=== PATIENT | male | born 1960 | race American Indian/Alaskan Native ===

== ENCOUNTER 2019-05-22 09:32 | Inpatient (IN) | payer MEDICARE, OTHER ==
[2019-05-22] MEDS ORDERED: IBUPROFEN PO ONE (10:08)
--- NOTE | 2019-05-22 10:12 | Emergency Department Report ---
ED Chest Pain HPI - General Chief Complaint: Chest Pain Stated Complaint: CHEST PAIN Time Seen by Provider: 05/22/19 10:07 Source: patient Mode of arrival: Ambulatory Limitations: No Limitations - History of Present Illness Initial Comments: Mr. Shields is a 58 yo male with hx of HTN, tobacco abuse who presents with right sided chest pain after eating spaghetti last night. [place] like gas. However, the pain has persisted. Worse with inspiration. Dull "very light " pain. No hx of heart disease. PCP Dr. Zarate. No relief with Gas-X Complaint: chest pain -: Gradual, Last night Onset: during rest Pain Location: right chest Pain Radiation: none Severity: mild Severity scale (0 -10): 4 Quality: aching Consistency: constant Improves With: nothing Worsens With: inspiration Other Symptoms: denies: cough Treatments Prior to Arrival: other (Gas X) - Related Data Allergies Allergy/AdvReac Type Severity Reaction Status Date / Time No Known Allergies Allergy Verified 05/22/19 09:45 Heart Score - HEART Score History: Slightly suspicious EKG: Normal Age: 45-65 Risk factors: 1-2 risk factors Troponin: < normal limit HEART Score: 2 ED Review of Systems ROS: Stated complaint: CHEST PAIN Other details as noted in HPI Comment: All other systems reviewed and negative Constitutional: denies: fever, malaise Respiratory: denies: cough, shortness of breath Cardiovascular: chest pain Gastrointestinal: denies: abdominal pain ED Past Medical Hx - Past Medical History Previous Medical History?: Yes Hx Hypertension: Yes - Surgical History Past Surgical History?: Yes Additional Surgical History: right shoulder/arm - Family History Family history: hypertension - Social History Smoking Status: Current Every Day Smoker Substance Use Type: Alcohol ED Physical Exam - General Limitations: No Limitations General appearance: alert, in no apparent distress - Head Head exam: Present: atraumatic, normocephalic - Eye Eye exam: Present: normal appearance - ENT ENT exam: Present: mucous membranes moist - Neck Neck exam: Present: normal inspection, full ROM - Respiratory Respiratory exam: Present: normal lung sounds bilaterally. Absent: respiratory distress, wheezes, rales, rhonchi - Cardiovascular Cardiovascular Exam: Present: regular rate, normal rhythm, normal heart sounds. Absent: systolic murmur, diastolic murmur, rubs, gallop - GI/Abdominal GI/Abdominal exam: Present: soft, normal bowel sounds. Absent: distended, tenderness, guarding, rebound - Rectal Rectal exam: Present: deferred - Extremities Exam Extremities exam: Present: normal inspection - Back Exam Back exam: Present: normal inspection - Neurological Exam Neurological exam: Present: alert, oriented X3 - Psychiatric Psychiatric exam: Present: normal affect, normal mood - Skin Skin exam: Present: warm, dry, intact, normal color. Absent: rash ED Course Vital Signs 05/22/19 05/22/19 09:46 13:01 Temperature 97.6 F 97.8 F Pulse Rate 114 H 81 Respiratory 18 18 Rate Blood Pressure 158/90 Blood Pressure 131/81 [Left] O2 Sat by Pulse 95 95 Oximetry ED Medical Decision Making - Lab Data Result diagrams: 05/22/19 10:12 05/22/19 10:12 Lab Results 05/22/19 05/22/19 05/22/19 Range/Units 10:12 10:12 10:12 WBC 6.6 (4.5-11.0) K/mm3 RBC 4.44 (3.65-5.03) M/mm3 Hgb 14.6 (11.8-15.2) gm/dl Hct 43.1 (35.5-45.6) % MCV 97 H (84-94) fl MCH 33 H (28-32) pg MCHC 34 (32-34) % RDW 14.9 (13.2-15.2) % Plt Count 127 L (140-440) K/mm3 [place] % (Auto) Third Shift Lieutenant D-Dimer 1757.46 H (0-234) ng/mlDDU Sodium 137 (137-145) mmol/L Potassium 4.0 (3.6-5.0) mmol/L Chloride 94.9 L (98-107) mmol/L Carbon Dioxide 30 (22-30) mmol/L Anion Gap 16 mmol/L BUN 8 L (9-20) mg/dL Creatinine 0.9 (0.8-1.5) mg/dL Estimated GFR > 60 ml/min BUN/Creatinine Ratio 9 % Glucose 130 H (75-100) mg/dL Calcium 9.6 (8.4-10.2) mg/dL Total Bilirubin 1.20 (0.1-1.2) mg/dL AST 43 H (5-40) units/L ALT 36 (7-56) units/L Alkaline Phosphatase 65 (35-129) units/L Troponin T < 0.010 (0.00-0.029) ng/mL Total Protein 7.6 (6.3-8.2) g/dL Albumin 3.9 (3.9-5) g/dL Albumin/Globulin Ratio 1.1 % - EKG Data 05/22/19 10:11 EKG obtained 0943 Sinus tachycardia rate 110 bpm normal axis normal intervals no ST-T signs no indication of infarct - Radiology Data Radiology results: report reviewed Chest x-ray 2 views according to radiology report streaky bibasilar atelectasis with otherwise clear lungs, heart within normal limits - Medical Decision Making Mr. Shields is a pleasant 58-year-old gentleman with history of hypertension and tobacco abuse who presents with a chest pain Diagnosis pulmonary emboli segmental subsegmental CT scan revealed parenchymal c hanges possible infarction. Normal troponin. Admitted telemetry in stable condition. Repeat heart rate 72 beats per minute. Repeat blood pressure 121/72. Given Lovenox and medication for pain control. Mr. Shields has been stable and nontoxic appearing throughout ED course. Critical care attestation.: If time is entered above; I have spent that time in minutes in the direct care of this critically ill patient, excluding procedure time. ED Disposition Clinical Impression: Pulmonary embolism and infarction Disposition: OP ADMIT IP TO THIS HOSP Is pt being admited?: Yes Does the pt Need Aspirin: No Condition: Stable
--- NOTE | 2019-05-22 10:44 | XRay Report ---
CHEST 2 VIEWS INDICATION: Chest Pain. Generalized chest pain for the past 3 days COMPARISON: None FINDINGS: Support devices: None. Heart: Within normal limits. Lungs/pleura: There is streaky bibasilar airspace disease with otherwise clear lungs. No pneumothora x. Additional findings: None. IMPRESSION: 1. Streaky bibasilar atelectasis with otherwise clear lungs. Signer Name: Apollo Kamara MD Signed: 05/22/2019 10:39 AM Workstation Name: [id number]
[2019-05-22 10:51] LABS: Hematocrit 43.1 % (35.5-45.6); Hemoglobin 14.6 gm/dl (11.8-15.2); Mean Corpuscular HGB Conc 34 % (32-34); Mean Corpuscular Volume 97 fl (84-94); Platelet Count 127 K/mm3 (140-440); Red Blood Count 4.44 M/mm3 (3.65-5.03); Red Cell Distribution Width 14.9 % (13.2-15.2)
[2019-05-22 11:12] LABS: Alanine Aminotransferase 36 units/L (7-56); Albumin 3.9 g/dL (3.9-5); BUN/Creatinine Ratio 9; Blood Urea Nitrogen 8 mg/dL (9-20); Calcium 9.6 mg/dL (8.4-10.2); Hemolysis Index 29
--- NOTE | 2019-05-22 12:51 | Cat Scan Report ---
CTA chest with contrast INDICATION : pleuritic chest pain elevated d-dimer. Generalized right-sided chest pain for the past 3 days TECHNIQUE: Axial imaging performed through the chest, with contrast bolus timing set to maximize opa cification of the pulmonary arteries. 3-plane MIP reformatted images were obtained. All CT scans at this location are performed using CT dose reduction for ALARA by means of automated exposure control. 100 mL of intravenous contrast administered. COMPARISON: None FINDINGS: Bolus: Contrast bolus timing is adequate. PTE: There are segmental/subsegmental thrombi in the right lower and middle lobes, with peripheral p arenchymal changes in the lungs especially in the right middle lobe which is pleural-based and wedge- shaped. Mediastinum: Heart and great vessels appear normal. No pathologic mediastinal adenopathy. Lungs: Aside from the above-mentioned parenchymal change, there is a small right-sided effusion and right basilar consolidation. Left lung is clear. Upper abdomen: Limited imaging of the upper abdomen shows nothing acute. Bones: Degenerative changes in the spine with nothing acute. IMPRESSION: Positive for PTE as outlined above. Findings in the lungs can be seen with evolving paren chymal infarction. CRITICAL RESULT: Time of Discovery (NUTRITION TECHNICIAN/CDT): 11:43 am Time of Communication (NUTRITION TECHNICIAN/CDT): 11:45 am Licensed Practitioner Receiving Report: Dr. Osullivan Read Back Performed: Not applicable. Signer Name: Apollo Kamara MD Signed: 05/22/2019 12:47 PM Workstation Name: [id number]
[2019-05-22] MEDS ORDERED: LOVENOX SUB-Q ONE (13:25)
[2019-05-22] MEDS ORDERED: PERCOCET 5/325 PO ONE (13:27)
[2019-05-22 13:30] LABS: Basophils % (Manual) 0 % (0.0-1.8); Platelet Estimate Consistent w Auto; RBC Morphology Normal; Total Cells Counted 100
--- NOTE | 2019-05-22 21:23 | History and Physical Report ---
History of Present Illness Date of examination: 05/22/19 Date of admission: 05/22/19 13:29 Chief complaint: CHest pain and SOB for one day History of present illness: Mr. Shields is a 58 yo male with hx of HTN, tobacco abuse presents with right sided chest pain after eating spaghetti last night. However, the pain has persisted. Worse with inspiration. Also SOB on minimal exertion.No prior history of PE. No recent travel. Past Medical History Previous Medical History?: Yes Hx Hypertension: Yes Surgical History Past Surgical History?: Yes Additional Surgical History: right shoulder/arm Family History Family history: hypertension Social History Smoking Status: Current Every Day Smoker Substance Use Type: Alcohol Review of Systems ROS: Stated complaint: CHEST PAIN Other details as noted in HPI Comment: All other systems reviewed and negative Constitutional: denies: fever, malaise Respiratory: denies: cough, shortness of breath Cardiovascular: chest pain Gastrointestinal: denies: abdominal pain Medications and Allergies Allergies Allergy/AdvReac Type Severity Reaction Status Date / Time No Known Allergies Allergy Verified 05/22/19 09:45 Home Medications Medication Instructions Recorded Confirmed Last Taken Type Losartan Potassium 50 mg PO QDAY 05/22/19 05/22/19 05/21/19 History hydroCHLOROthiazide [Hctz] 12.5 mg PO QDAY 05/22/19 05/22/19 05/21/19 10:00 History Exam - Constitutional Vitals: Temp Pulse Resp BP Pulse Ox 98.2 F 70 18 124/84 93 05/22/19 20:16 05/22/19 20:16 05/22/19 20:16 05/22/19 20:16 05/22/19 20:16 General appearance: Present: no acute distress, well-nourished - EENT Eyes: Present: PERRL ENT: hearing intact, clear oral mucosa - Neck Neck: Present: supple, normal ROM - Respiratory Respiratory effort: normal Respiratory: bilateral: CTA - Cardiovascular Heart rate: 98 Rhythm: regular Heart Sounds: Present: S1 & S2. Absent: rub, click - Extremities Extremities: no ischemia, pulses intact, pulses symmetrical, No edema Peripheral Pulses: within normal limits - Abdominal General gastrointestinal: Present: soft, non-tender, non-distended, normal bowel sounds Male genitourinary: Present: normal - Rectal Rectal Exam: deferred - Integumentary Integumentary: Present: clear, warm, dry - Musculoskeletal Musculoskeletal: gait normal, strength equal bilaterally - Psychiatric Psychiatric: appropriate mood/affect, intact judgment & insight - Neurologic Neurologic: CNII-XII intact, moves all extremities - Allied Health Allied health notes reviewed: nursing, case management Results - Labs CBC & Chem 7: 05/22/19 10:12 05/23/19 03:44 Labs: Laboratory Last Values WBC 6.6 K/mm3 (4.5-11.0) 05/22/19 10:12 RBC 4.44 M/mm3 (3.65-5.03) 05/22/19 10:12 Hgb 14.6 gm/dl (11.8-15.2) 05/22/19 10:12 Hct 43.1 % (35.5-45.6) 05/22/19 10:12 MCV 97 fl (84-94) H 05/22/19 10:12 MCH 33 pg (28-32) H 05/22/19 10:12 MCHC 34 % (32-34) 05/22/19 10:12 RDW 14.9 % (13.2-15.2) 05/22/19 10:12 Plt Count 127 K/mm3 (140-440) L 05/22/19 10:12 [place] % (Auto) Bicycle Repair Technician 05/22/19 10:12 Add Manual Diff Complete 05/22/19 10:12 Total Counted 100 05/22/19 10:12 Seg Neuts % (Manual) 71.0 % (40.0-70.0) H 05/22/19 10:12 0 % 05/22/19 10:12 14.0 % (13.4-35.0) 05/22/19 10:12 Reactive Lymphs % (Man) 0 % 05/22/19 10:12 12.0 % (0.0-7.3) H 05/22/19 10:12 3.0 % (0.0-4.3) 05/22/19 10:12 0 % (0.0-1.8) 05/22/19 10:12 0 % 05/22/19 10:12 0 % 05/22/19 10:12 0 % 05/22/19 10:12 0 % 05/22/19 10:12 Nucleated RBC % Not Reportable 05/22/19 10:12 Seg Neutrophils # Man 4.7 K/mm3 (1.8-7.7) 05/22/19 10:12 Band Neutrophils # 0.0 K/mm3 05/22/19 10:12 0.9 K/mm3 (1.2-5.4) L 05/22/19 10:12 Abs React Lymphs (Man) 0.0 K/mm3 05/22/19 10:12 0.8 K/mm3 (0.0-0.8) 05/22/19 10:12 0.2 K/mm3 (0.0-0.4) 05/22/19 10:12 0.0 K/mm3 (0.0-0.1) 05/22/19 10:12 0.0 K/mm3 05/22/19 10:12 0.0 K/mm3 05/22/19 10:12 0.0 K/mm3 05/22/19 10:12 Blast Cells # 0.0 K/mm3 05/22/19 10:12 WBC Morphology Not Reportable 05/22/19 10:12 Hypersegmented Neuts Not Reportable 05/22/19 10:12 Hyposegmented Neuts Not Reportable 05/22/19 10:12 Hypogranular Neuts Not Reportable 05/22/19 10:12 Not Reportable 05/22/19 10:12 Not Reportable 05/22/19 10:12 Not Reportable 05/22/19 10:12 Not Reportable 05/22/19 10:12 Not Reportable 05/22/19 10:12 Not Reportable 05/22/19 10:12 Consistent w auto 05/22/19 10:12 Not Reportable 05/22/19 10:12 Plt Clumps, EDTA Not Reportable 05/22/19 10:12 Not Reportable 05/22/19 10:12 Not Reportable 05/22/19 10:12 Not Reportable 05/22/19 10:12 Plt Morphology Comment Not Reportable 05/22/19 10:12 RBC Morphology Normal 05/22/19 10:12 Dimorphic RBCs Not Reportable 05/22/19 10:12 Not Reportable 05/22/19 10:12 Not Reportable 05/22/19 10:12 Not Reportable 05/22/19 10:12 Not Reportable 05/22/19 10:12 Not Reportable 05/22/19 10:12 Not Reportable 05/22/19 10:12 Not Reportable 05/22/19 10:12 Not Reportable 05/22/19 10:12 Not Reportable 05/22/19 10:12 Not Reportable 05/22/19 10:12 Not Reportable 05/22/19 10:12 Not Reportable 05/22/19 10:12 Not Reportable 05/22/19 10:12 Not Reportable 05/22/19 10:12 Not Reportable 05/22/19 10:12 Not Reportable 05/22/19 10:12 Not Reportable 05/22/19 10:12 Not Reportable 05/22/19 10:12 Not Reportable 05/22/19 10:12 Acanthocytes (Spur) Not Reportable 05/22/19 10:12 Rouleaux Not Reportable 05/22/19 10:12 Not Reportable 05/22/19 10:12 Not Reportable 05/22/19 10:12 Not Reportable 05/22/19 10:12 Not Reportable 05/22/19 10:12 Hem Pathologist Commnt No 05/22/19 10:12 1757.46 ng/mlDDU (0-234) H 05/22/19 10:12 Sodium 137 mmol/L (137-145) 05/22/19 10:12 Potassium 4.0 mmol/L (3.6-5.0) 05/22/19 10:12 Chloride 94.9 mmol/L (98-107) L 05/22/19 10:12 Carbon Dioxide 30 mmol/L (22-30) 05/22/19 10:12 16 mmol/L 05/22/19 10:12 BUN 8 mg/dL (9-20) L 05/22/19 10:12 0.9 mg/dL (0.8-1.5) 05/22/19 10:12 Estimated GFR > 60 ml/min 05/22/19 10:12 9 % 05/22/19 10:12 Glucose 130 mg/dL (75-100) H 05/22/19 10:12 Calcium 9.6 mg/dL (8.4-10.2) 05/22/19 10:12 1.20 mg/dL (0.1-1.2) 05/22/19 10:12 AST 43 units/L (5-40) H 05/22/19 10:12 ALT 36 units/L (7-56) 05/22/19 10:12 65 units/L (35-129) 05/22/19 10:12 < 0.010 ng/mL (0.00-0.029) 05/22/19 10:12 7.6 g/dL (6.3-8.2) 05/22/19 10:12 3.9 g/dL (3.9-5) 05/22/19 10:12 1.1 % 05/22/19 10:12 - Imaging and Cardiology EKG: report reviewed Imaging and Cardiology: CT Chest Segmental subsegmental thrombi in the right lower and middle lobes with parenchymal changes in the lungs possible evolving infarction., There is a small right-sided effusion Assessment and Plan Advance Directives: Yes (Full code) VTE prophylaxis?: Chemical Plan of care discussed with patient/family: Yes - Patient Problems (1) Acute pulmonary embolism Current Visit: Yes Status: Acute Qualifiers: Acute cor pulmonale presence: without acute cor pulmonale Plan to address problem: Lovenox 110 mcg sq q12h initiated Transition to Eliquis tomorrow. (2) HTN (hypertension) Current Visit: Yes Status: Chronic Qualifiers: Hypertension type: essential hypertension Qualified Code(s): I10 - Essential (primary) hypertension Plan to address problem: Cont antihypertensives (3) Chest pain Current Visit: Yes Status: Acute Qualifiers: Chest pain type: chest pain on breathing Qualified Code(s): R07.1 - Chest pain on breathing; R07.81 - Pleurodynia Plan to address problem: Sec to pumlmonary infarct Trend troponins No stress test (4) DVT prophylaxis Current Visit: Yes Status: Acute Plan to address problem: On Lovenox and GI prophylaxis
[2019-05-22] MEDS ORDERED: PERCOCET 5/325 PO PRN (21:24)
[2019-05-22] MEDS ORDERED: ZOFRAN IV PRN (21:24)
[2019-05-22] MEDS ORDERED: SODIUM CHLORIDE FLUSH SYRINGE 10 ML IV PRN (21:24)
[2019-05-22] MEDS ORDERED: TYLENOL PO PRN (21:24)
[2019-05-22] MEDS ORDERED: DILAUDID IV PRN (21:24)
[2019-05-22] MEDS ORDERED: LOSARTAN POTASSIUM 50 MG PO SCH (21:30)
[2019-05-22] MEDS: SODIUM CHLORIDE FLUSH SYRINGE 10 ML IV SCH (22:08)
[2019-05-22] MEDS: COZAAR PO SCH (22:09)
[2019-05-22] MEDS: PEPCID PO SCH (22:13)
[2019-05-23] MEDS: LOVENOX SUB-Q SCH ×2 (01:00→14:52)
[2019-05-23 05:22] LABS: Alanine Aminotransferase 30 units/L (7-56); Albumin 3.5 g/dL (3.9-5); BUN/Creatinine Ratio 11; Blood Urea Nitrogen 9 mg/dL (9-20); Calcium 9.2 mg/dL (8.4-10.2); Hemolysis Index 22
[2019-05-23] MEDS: PEPCID PO SCH ×2 (09:52→21:54)
[2019-05-23] MEDS: COZAAR PO SCH (09:52)
[2019-05-23] MEDS: SODIUM CHLORIDE FLUSH SYRINGE 10 ML IV SCH ×2 (09:53→21:54)
--- NOTE | 2019-05-23 10:53 | Progress Note ---
Assessment and Plan Assessment and plan: CT Chest:Segmental subsegmental thrombi in the right lower and middle lobes with parenchymal changes in the lungs possible evolving infarction., There is a small right-sided effusion --Acute RTpulmonary embolism Current Visit: Yes Status: Acute Lovenox 110 mcg sq q12h initiated Check lower extremity venous Doppler to rule out DVT Transition to Eliquis tomorrow. Hematology consult Case management to assist with Eliquis -- HTN (hypertension) Current Visit: Yes Status: Chronic Cont antihypertensives well Controlled --Chest pain Current Visit: Yes Status: Acute Sec to PE and pumlmonary infarct Patient denies chest pain today pulmonary evaluation inpatient versus outpatient -- DVT prophylaxis Current Visit: Yes Status: Acute Plan to address problem: On Lovenox and GI prophylaxis. --Obesity; BMI 33.9 Current Visit: Yes Status: Chronic Advised weight reduction, diet modification The lifestyle changes when medically stable Monitor closely and adjust the management as needed Hypercoagulable workup as outpatient at hematology/PMD office Plan of care is reviewed with the patient and his nurse Possible discharge in 1-2 days if stable History Interval history: Patient seen and examined medical records reviewed Admitted with right-sided pulmonary embolism, on Lovenox Patient has no respiratory compromise Comfortable denies shortness of breath, saturating well on room air Vital signs noted Hospitalist Physical - Constitutional Vitals: Temp Pulse Resp BP Pulse Ox 98.7 F 77 16 116/73 94 05/23/19 08:33 05/23/19 09:52 05/23/19 08:33 05/23/19 09:52 05/23/19 08:33 General appearance: Present: no acute distress, well-nourished, obese - EENT Eyes: Present: PERRL, EOM intact - Neck Neck: Present: supple, normal ROM - Respiratory Respiratory effort: normal Respiratory: bilateral: diminished, rhonchi, negative: rales, wheezing - Cardiovascular Rhythm: regular Heart Sounds: Present: S1 & S2 - Extremities Extremities: no ischemia, No edema - Abdominal General gastrointestinal: soft, non-tender, non-distended, normal bowel sounds - Integumentary Integumentary: Present: clear, warm - Psychiatric Psychiatric: appropriate mood/affect, cooperative - Neurologic Neurologic: CNII-XII intact, moves all extremities Results - Labs CBC & Chem 7: 05/22/19 10:12 05/23/19 03:44 Labs: Laboratory Last Values WBC 6.6 K/mm3 (4.5-11.0) 05/22/19 10:12 RBC 4.44 M/mm3 (3.65-5.03) 05/22/19 10:12 Hgb 14.6 gm/dl (11.8-15.2) 05/22/19 10:12 Hct 43.1 % (35.5-45.6) 05/22/19 10:12 MCV 97 fl (84-94) H 05/22/19 10:12 MCH 33 pg (28-32) H 05/22/19 10:12 MCHC 34 % (32-34) 05/22/19 10:12 RDW 14.9 % (13.2-15.2) 05/22/19 10:12 Plt Count 127 K/mm3 (140-440) L 05/22/19 10:12 [place] % (Auto) Data Entry Clerk 05/22/19 10:12 Add Manual Diff Complete 05/22/19 10:12 Total Counted 100 05/22/19 10:12 Seg Neuts % (Manual) 71.0 % (40.0-70.0) H 05/22/19 10:12 0 % 05/22/19 10:12 14.0 % (13.4-35.0) 05/22/19 10:12 Reactive Lymphs % (Man) 0 % 05/22/19 10:12 12.0 % (0.0-7.3) H 05/22/19 10:12 3.0 % (0.0-4.3) 05/22/19 10:12 0 % (0.0-1.8) 05/22/19 10:12 0 % 05/22/19 10:12 0 % 05/22/19 10:12 0 % 05/22/19 10:12 0 % 05/22/19 10:12 Nucleated RBC % Not Reportable 05/22/19 10:12 Seg Neutrophils # Man 4.7 K/mm3 (1.8-7.7) 05/22/19 10:12 Band Neutrophils # 0.0 K/mm3 05/22/19 10:12 0.9 K/mm3 (1.2-5.4) L 05/22/19 10:12 Abs React Lymphs (Man) 0.0 K/mm3 05/22/19 10:12 0.8 K/mm3 (0.0-0.8) 05/22/19 10:12 0.2 K/mm3 (0.0-0.4) 05/22/19 10:12 0.0 K/mm3 (0.0-0.1) 05/22/19 10:12 0.0 K/mm3 05/22/19 10:12 0.0 K/mm3 05/22/19 10:12 0.0 K/mm3 05/22/19 10:12 Blast Cells # 0.0 K/mm3 05/22/19 10:12 WBC Morphology Not Reportable 05/22/19 10:12 Hypersegmented Neuts Not Reportable 05/22/19 10:12 Hyposegmented Neuts Not Reportable 05/22/19 10:12 Hypogranular Neuts Not Reportable 05/22/19 10:12 Not Reportable 05/22/19 10:12 Not Reportable 05/22/19 10:12 Not Reportable 05/22/19 10:12 Not Reportable 05/22/19 10:12 Not Reportable 05/22/19 10:12 Not Reportable 05/22/19 10:12 Consistent w auto 05/22/19 10:12 Not Reportable 05/22/19 10:12 Plt Clumps, EDTA Not Reportable 05/22/19 10:12 Not Reportable 05/22/19 10:12 Not Reportable 05/22/19 10:12 Not Reportable 05/22/19 10:12 Plt Morphology Comment Not Reportable 05/22/19 10:12 RBC Morphology Normal 05/22/19 10:12 Dimorphic RBCs Not Reportable 05/22/19 10:12 Not Reportable 05/22/19 10:12 Not Reportable 05/22/19 10:12 Not Reportable 05/22/19 10:12 Not Reportable 05/22/19 10:12 Not Reportable 05/22/19 10:12 Not Reportable 05/22/19 10:12 Not Reportable 05/22/19 10:12 Not Reportable 05/22/19 10:12 Not Reportable 05/22/19 10:12 Not Reportable 05/22/19 10:12 Not Reportable 05/22/19 10:12 Not Reportable 05/22/19 10:12 Not Reportable 05/22/19 10:12 Not Reportable 05/22/19 10:12 Not Reportable 05/22/19 10:12 Not Reportable 05/22/19 10:12 Not Reportable 05/22/19 10:12 Not Reportable 05/22/19 10:12 Not Reportable 05/22/19 10:12 Acanthocytes (Spur) Not Reportable 05/22/19 10:12 Rouleaux Not Reportable 05/22/19 10:12 Not Reportable 05/22/19 10:12 Not Reportable 05/22/19 10:12 Not Reportable 05/22/19 10:12 Not Reportable 05/22/19 10:12 Hem Pathologist Commnt No 05/22/19 10:12 1757.46 ng/mlDDU (0-234) H 05/22/19 10:12 Sodium 136 mmol/L (137-145) L 05/23/19 03:44 Potassium 3.7 mmol/L (3.6-5.0) 05/23/19 03:44 Chloride 94.4 mmol/L (98-107) L 05/23/19 03:44 Carbon Dioxide 29 mmol/L (22-30) 05/23/19 03:44 16 mmol/L 05/23/19 03:44 BUN 9 mg/dL (9-20) 05/23/19 03:44 0.8 mg/dL (0.8-1.5) 05/23/19 03:44 Estimated GFR > 60 ml/min 05/23/19 03:44 11 % 05/23/19 03:44 Glucose 124 mg/dL (75-100) H 05/23/19 03:44 6.0 % (4-6) 05/22/19 22:47 Calcium 9.2 mg/dL (8.4-10.2) 05/23/19 03:44 1.30 mg/dL (0.1-1.2) H 05/23/19 03:44 AST 38 units/L (5-40) 05/23/19 03:44 ALT 30 units/L (7-56) 05/23/19 03:44 59 units/L (35-129) 05/23/19 03:44 < 0.010 ng/mL (0.00-0.029) 05/22/19 10:12 7.1 g/dL (6.3-8.2) 05/23/19 03:44 3.5 g/dL (3.9-5) L 05/23/19 03:44 1.0 % 05/23/19 03:44 Active Medications - Current Medications Current Medications: Generic Name Dose Route Start Last Admin Trade Name Freq PRN Reason Stop Dose Admin Acetaminophen 650 mg 05/22/19 21:24 Tylenol PO Q4H PRN Pain MILD(1-3)/Fever >100.5/CONTRERAS Enoxaparin Sodium 110 mg 05/23/19 02:00 05/23/19 01:00 Lovenox SUB-Q 110 mg Q12H ANUJA Administration Famotidine 20 mg 05/22/19 22:00 05/23/19 09:52 Pepcid PO 20 mg BID ANUJA Administration Hydromorphone HCl 0.5 mg 05/22/19 21:24 Dilaudid IV Q3H PRN Pain , Severe (7-10) Losartan Potassium 50 mg 05/22/19 21:30 05/23/19 09:52 Cozaar PO 50 mg QDAY ANUJA Administration Ondansetron HCl 4 mg 05/22/19 21:24 Zofran IV Q8H PRN Nausea And Vomiting Oxycodone/Acetaminophen 1 tab 05/22/19 21:24 Percocet 5/325 PO Q6H PRN Pain, Moderate (4-6) Sodium Chloride 10 ml 05/22/19 22:00 05/23/19 09:53 Sodium Chloride Flush Syringe 10 Ml IV 10 ml BID ANUJA Administration Sodium Chloride 10 ml 05/22/19 21:24 Sodium Chloride Flush Syringe 10 Ml IV PRN PRN LINE FLUSH
[2019-05-24] MEDS: LOVENOX SUB-Q SCH (01:01)
[2019-05-24] MEDS: ELIQUIS PO SCH ×2 (09:35→21:15)
[2019-05-24] MEDS: COZAAR PO SCH (09:35)
[2019-05-24] MEDS: PEPCID PO SCH ×2 (09:36→21:15)
[2019-05-24] MEDS: SODIUM CHLORIDE FLUSH SYRINGE 10 ML IV SCH ×2 (09:37→21:15)
--- NOTE | 2019-05-24 14:13 | Vascular Lab Report ---
DUPLEX DOPPLER LOWER EXTREMITY VEINS, BILATERAL INDICATION: Pulmonary embolus. Evaluate for DVT TECHNIQUE: Duplex doppler imaging was performed through the veins of both lower extremities using ve nous compression and other maneuvers. COMPARISON: No relevant prior imaging study available. FINDINGS: Right Common femoral vein: Negative. Right Superficial femoral vein: Negative. Right Popliteal vein: Negative. Right Calf veins: Negative. Left Common femoral vein: Negative. Left Superficial femoral vein: Negative. Left Popliteal vein: Negative. Left Calf veins: Negative. Additional findings: None.. IMPRESSION: No sonographic evidence for DVT in either lower extremity. Signer Name: Ashutosh Quiñones Jr, MD Signed: 05/24/2019 2:09 PM Workstation Name: [id number]
--- NOTE | 2019-05-24 20:31 | Progress Note ---
Assessment and Plan Assessment and plan: CT Chest:Segmental subsegmental thrombi in the right lower and middle lobes with parenchymal changes in the lungs possible evolving infarction., There is a small right-sided effusion --Acute RTpulmonary embolism Current Visit: Yes Status: Acute s/p Lovenox 110 mcg sq q12h initiated Transition to Eliquis today Check lower extremity venous Doppler to rule out DVT Hematology consult, follow echocardiogram Case management to assist with Eliquis --Chest pain Current Visit: Yes Status: Acute Sec to PE and pumlmonary infarct Patient denies chest pain today pulmonary evaluation inpatient versus outpatient -- HTN (hypertension) Current Visit: Yes Status: Chronic Cont antihypertensives well Controlled -- DVT prophylaxis Current Visit: Yes Status: Acute Plan to address problem: On eliquis --Obesity; BMI 33.9 Current Visit: Yes Status: Chronic Advised weight reduction, diet modification The lifestyle changes when medically stable Follow hematology evaluation and recommendations Disposition ;Follow echocardiogram report Hypercoagulable workup as outpatient at hematology/PMD office Possible discharge tomorrow if stable History Interval history: An seen and examined medical records reviewed Patient complains of mild chest pain and discomfort Right PE received Lovenox, transitioned to Eliquis today Alert awake oriented Vital Signs noted Hospitalist Physical - Constitutional Vitals: Temp Pulse Resp BP Pulse Ox 98.0 F 68 18 134/75 95 05/24/19 20:01 05/24/19 20:00 05/24/19 20:00 05/24/19 20:00 05/24/19 20:00 General appearance: Present: mild distress, well-nourished, obese - EENT Eyes: Present: PERRL, EOM intact - Neck Neck: Present: supple, normal ROM - Respiratory Respiratory effort: normal Respiratory: bilateral: diminished, rhonchi, negative: rales, wheezing - Cardiovascular Rhythm: regular Heart Sounds: Present: S1 & S2 - Extremities Extremities: no ischemia, No edema - Abdominal General gastrointestinal: soft, non-tender, non-distended, normal bowel sounds - Integumentary Integumentary: Present: clear, warm - Psychiatric Psychiatric: appropriate mood/affect, cooperative - Neurologic Neurologic: CNII-XII intact, moves all extremities Results - Labs CBC & Chem 7: 05/22/19 10:12 05/23/19 03:44 Labs: Laboratory Last Values WBC 6.6 K/mm3 (4.5-11.0) 05/22/19 10:12 RBC 4.44 M/mm3 (3.65-5.03) 05/22/19 10:12 Hgb 14.6 gm/dl (11.8-15.2) 05/22/19 10:12 Hct 43.1 % (35.5-45.6) 05/22/19 10:12 MCV 97 fl (84-94) H 05/22/19 10:12 MCH 33 pg (28-32) H 05/22/19 10:12 MCHC 34 % (32-34) 05/22/19 10:12 RDW 14.9 % (13.2-15.2) 05/22/19 10:12 Plt Count 127 K/mm3 (140-440) L 05/22/19 10:12 [place] % (Auto) Steam Bone Press Tender 05/22/19 10:12 Add Manual Diff Complete 05/22/19 10:12 Total Counted 100 05/22/19 10:12 Seg Neuts % (Manual) 71.0 % (40.0-70.0) H 05/22/19 10:12 0 % 05/22/19 10:12 14.0 % (13.4-35.0) 05/22/19 10:12 Reactive Lymphs % (Man) 0 % 05/22/19 10:12 12.0 % (0.0-7.3) H 05/22/19 10:12 3.0 % (0.0-4.3) 05/22/19 10:12 0 % (0.0-1.8) 05/22/19 10:12 0 % 05/22/19 10:12 0 % 05/22/19 10:12 0 % 05/22/19 10:12 0 % 05/22/19 10:12 Nucleated RBC % Not Reportable 05/22/19 10:12 Seg Neutrophils # Man 4.7 K/mm3 (1.8-7.7) 05/22/19 10:12 Band Neutrophils # 0.0 K/mm3 05/22/19 10:12 0.9 K/mm3 (1.2-5.4) L 05/22/19 10:12 Abs React Lymphs (Man) 0.0 K/mm3 05/22/19 10:12 0.8 K/mm3 (0.0-0.8) 05/22/19 10:12 0.2 K/mm3 (0.0-0.4) 05/22/19 10:12 0.0 K/mm3 (0.0-0.1) 05/22/19 10:12 0.0 K/mm3 05/22/19 10:12 0.0 K/mm3 05/22/19 10:12 0.0 K/mm3 05/22/19 10:12 Blast Cells # 0.0 K/mm3 05/22/19 10:12 WBC Morphology Not Reportable 05/22/19 10:12 Hypersegmented Neuts Not Reportable 05/22/19 10:12 Hyposegmented Neuts Not Reportable 05/22/19 10:12 Hypogranular Neuts Not Reportable 05/22/19 10:12 Not Reportable 05/22/19 10:12 Not Reportable 05/22/19 10:12 Not Reportable 05/22/19 10:12 Not Reportable 05/22/19 10:12 Not Reportable 05/22/19 10:12 Not Reportable 05/22/19 10:12 Consistent w auto 05/22/19 10:12 Not Reportable 05/22/19 10:12 Plt Clumps, EDTA Not Reportable 05/22/19 10:12 Not Reportable 05/22/19 10:12 Not Reportable 05/22/19 10:12 Not Reportable 05/22/19 10:12 Plt Morphology Comment Not Reportable 05/22/19 10:12 RBC Morphology Normal 05/22/19 10:12 Dimorphic RBCs Not Reportable 05/22/19 10:12 Not Reportable 05/22/19 10:12 Not Reportable 05/22/19 10:12 Not Reportable 05/22/19 10:12 Not Reportable 05/22/19 10:12 Not Reportable 05/22/19 10:12 Not Reportable 05/22/19 10:12 Not Reportable 05/22/19 10:12 Not Reportable 05/22/19 10:12 Not Reportable 05/22/19 10:12 Not Reportable 05/22/19 10:12 Not Reportable 05/22/19 10:12 Not Reportable 05/22/19 10:12 Not Reportable 05/22/19 10:12 Not Reportable 05/22/19 10:12 Not Reportable 05/22/19 10:12 Not Reportable 05/22/19 10:12 Not Reportable 05/22/19 10:12 Not Reportable 05/22/19 10:12 Not Reportable 05/22/19 10:12 Acanthocytes (Spur) Not Reportable 05/22/19 10:12 Rouleaux Not Reportable 05/22/19 10:12 Not Reportable 05/22/19 10:12 Not Reportable 05/22/19 10:12 Not Reportable 05/22/19 10:12 Not Reportable 05/22/19 10:12 Hem Pathologist Commnt No 05/22/19 10:12 1757.46 ng/mlDDU (0-234) H 05/22/19 10:12 Sodium 136 mmol/L (137-145) L 05/23/19 03:44 Potassium 3.7 mmol/L (3.6-5.0) 05/23/19 03:44 Chloride 94.4 mmol/L (98-107) L 05/23/19 03:44 Carbon Dioxide 29 mmol/L (22-30) 05/23/19 03:44 16 mmol/L 05/23/19 03:44 BUN 9 mg/dL (9-20) 05/23/19 03:44 0.8 mg/dL (0.8-1.5) 05/23/19 03:44 Estimated GFR > 60 ml/min 05/23/19 03:44 11 % 05/23/19 03:44 Glucose 124 mg/dL (75-100) H 05/23/19 03:44 6.0 % (4-6) 05/22/19 22:47 Calcium 9.2 mg/dL (8.4-10.2) 05/23/19 03:44 1.30 mg/dL (0.1-1.2) H 05/23/19 03:44 AST 38 units/L (5-40) 05/23/19 03:44 ALT 30 units/L (7-56) 05/23/19 03:44 59 units/L (35-129) 05/23/19 03:44 < 0.010 ng/mL (0.00-0.029) 05/22/19 10:12 7.1 g/dL (6.3-8.2) 05/23/19 03:44 3.5 g/dL (3.9-5) L 05/23/19 03:44 1.0 % 05/23/19 03:44 Active Medications - Current Medications Current Medications: Generic Name Dose Route Start Last Admin Trade Name Freq PRN Reason Stop Dose Admin Acetaminophen 650 mg 05/22/19 21:24 Tylenol PO Q4H PRN Pain MILD(1-3)/Fever >100.5/CONTRERAS Apixaban 10 mg 05/24/19 10:00 05/24/19 09:35 Eliquis PO 05/30/19 22:01 10 mg Q12HR ANUJA Administration Protocol Apixaban 5 mg 05/31/19 10:00 Eliquis PO Q12HR ANUJA Protocol Famotidine 20 mg 05/22/19 22:00 05/24/19 09:36 Pepcid PO 20 mg BID ANUJA Administration Hydromorphone HCl 0.5 mg 05/22/19 21:24 Dilaudid IV Q3H PRN Pain , Severe (7-10) Losartan Potassium 50 mg 05/22/19 21:30 05/24/19 09:35 Cozaar PO 50 mg QDAY ANUJA Administration Ondansetron HCl 4 mg 05/22/19 21:24 Zofran IV Q8H PRN Nausea And Vomiting Oxycodone/Acetaminophen 1 tab 05/22/19 21:24 Percocet 5/325 PO Q6H PRN Pain, Moderate (4-6) Sodium Chloride 10 ml 05/22/19 22:00 05/24/19 09:37 Sodium Chloride Flush Syringe 10 Ml IV 10 ml BID ANUJA Administration Sodium Chloride 10 ml 05/22/19 21:24 Sodium Chloride Flush Syringe 10 Ml IV PRN PRN LINE FLUSH
[2019-05-25 10:37] VITALS: BP 137/74
[2019-05-25] MEDS: PEPCID PO SCH (10:37)
[2019-05-25] MEDS: COZAAR PO SCH (10:37)
[2019-05-25] MEDS: ELIQUIS PO SCH (10:37)
[2019-05-25] MEDS: SODIUM CHLORIDE FLUSH SYRINGE 10 ML IV SCH (10:38)
--- NOTE | 2019-05-25 13:02 | Discharge Summary ---
Providers - Providers Date of Admission: 05/22/19 13:29 Date of discharge: 05/25/19 Attending physician: VANNA LOPEZ 05/24/19 20:33 Consult to Physician [CONS] Routine Comment: Consulting Provider: LUCIANO LEAL Physician Instructions: Reason For Exam: Rt.PE Primary care physician: CHECK OUT CLERK Hospitalization Condition: Stable Hospital course: Mr. Shields is a 58 yo male with hx of HTN, tobacco abuse presents with right sided chest pain after eating spaghetti last night. However, the pain has persisted. Worse with inspiration. Also SOB on minimal exertion.No prior history of PE. Discharge diagnosis and Mx: --Malnutrition mild/hypoalbuminemia; supportive care --Acute RTpulmonary embolism Current Visit: Yes Status: Acute CT Chest:Segmental subsegmental thrombi in the right lower and middle lobes with parenchymal changes in the lungs possible evolving infarction., There is a small right-sided effusion s/p Lovenox 110 mcg sq q12h initiated Transition to Eliquis today Check lower extremity venous Doppler to rule out DVT Hematology consult, follow echocardiogram Case management to assist with Eliquis --Chest pain Current Visit: Yes Status: Acute Sec to PE and pumlmonary infarct Patient denies chest pain today pulmonary evaluation inpatient versus outpatient -- HTN (hypertension) Current Visit: Yes Status: Chronic Cont antihypertensives well Controlled -- DVT prophylaxis Current Visit: Yes Status: Acute Plan to address problem: On eliquis --Obesity; BMI 33.9 Current Visit: Yes Status: Chronic Advised weight reduction, diet modification The lifestyle changes when medically stable Follow hematology evaluation and recommendations Disposition ;Follow echocardiogram report Hypercoagulable workup as outpatient at hematology/PMD office Possible discharge tomorrow if stable Hospitalist Physical General appearance: Present: mild distress, well-nourished, obese - EENT Eyes: Present: PERRL, EOM intact - Neck Neck: Present: supple, normal ROM - Respiratory Respiratory effort: normal Respiratory: bilateral: diminished, rhonchi, negative: rales, wheezing - Cardiovascular Rhythm: regular Heart Sounds: Present: S1 & S2 - Extremities Extremities: no ischemia, No edema - Abdominal General gastrointestinal: soft, non-tender, non-distended, normal bowel sounds - Integumentary Integumentary: Present: clear, warm - Psychiatric Psychiatric: appropriate mood/affect, cooperative - Neurologic Neurologic: CNII-XII intact, moves all extremities Disposition: DC/TX-02 SHRT-TRM GEN HOSP IP Time spent for discharge: 34 minutes Core Measure Documentation - Palliative Care Palliative Care/ Comfort Measures: Not Applicable - Core Measures Any of the following diagnoses?: none Exam - Constitutional Vitals: Temp Pulse Resp BP Pulse Ox 98.9 F 74 16 137/74 93 05/25/19 08:20 05/25/19 10:37 05/25/19 08:20 05/25/19 10:37 05/25/19 08:20 Plan Activity: advance as tolerated Weight Bearing Status: Weight Bear as Tolerated Diet: low fat, low salt Follow up with: PRIMARY CARE, [Primary Care Provider] - 7 Days KEIRY MARC MD [Staff Physician] - 7 Days Prescriptions: Apixaban [Eliquis] 5 mg PO Q12HR #60 tablet
--- NOTE | 2019-05-26 07:15 | Event Note ---
Date: 05/25/19 [id number]
--- NOTE | 2019-05-26 10:30 | Consultation ---
REFERRED BY: Dr. Freed. REASON FOR CONSULTATION: History of PE. HISTORY OF PRESENT ILLNESS: I saw the patient, a 58-year-old male, in the medical floor. The patient came to the hospital because of shortness of breath and chest pain. He has a history of hypertension and tobacco abuse. The chest pain, which was on the right side, happened after eating spaghetti. Pain persistent, worse with inspiration and also shortness of breath. The patient says that a few weeks ago, he sat in the car for 3 hours continuously while waiting for somebody. At this time, heparin has been started. There is a plan for Eliquis. The patient never had previous DVT or PE. No family history of DVT or PE. No recent long distance travel apart from the 3 hours sitting in the car. PAST MEDICAL HISTORY: As above. PAST SURGICAL HISTORY: Shoulder surgery. FAMILY HISTORY: Hypertension, smoking. SOCIAL HISTORY: Active smoker and history of alcohol usage. ALLERGIES: None. MEDICATIONS: Reviewed. PHYSICAL EXAMINATION: VITAL SIGNS: Temperature 98, pulse 69, respirations 16, BP 144/85. HEENT: No pallor, no icterus. NECK: No neck lymph nodes. HEART: S1, S2. LUNGS: Clear to auscultation. ABDOMEN: Soft. EXTREMITIES: No calf tenderness. NEUROLOGIC: Alert, awake, oriented. LABORATORY DATA: White cell 6, hemoglobin 14, MCV 97, platelet 127. D-dimer is high. Potassium 3.7, creatinine 0.8, calcium 9.2. RADIOLOGY: Positive for PE in the right lower and middle lobes. Leg Doppler negative. ASSESSMENT AND PLAN: 1. Right pulmonary embolism and history of smoking present. I discussed with the patient regarding quitting same. 2. History of 3 hours of sitting in the car a few weeks ago, this may have a role. 3. Eliquis. The patient is on heparin, Eliquis is being planned. I discussed with the patient regarding outpatient followup. 4. Mild thrombocytopenia. We will investigate and follow. 5. AST is 43. 6. Hypertension. I will follow the patient during inpatient stay and then in the clinic settings. JOB# [id number] NM/NTS
--- NOTE | 2019-05-26 14:45 | Event Note ---
Date: 05/26/19 Got a call from [facility] pharmacy that eliquis id not covered with patient's insurance Called pharmacy to change to xarelto - 15mg BID for 3 weeks, then 20mg daily will f/u with Dr. Antonette salazarpt
[2019-05-31] MEDS ORDERED: ELIQUIS PO SCH (10:00)
== END 2019-05-25 17:45 | disposition short-term general hospital (02) | DRG 176 ==
LOC: ED 09:32 → 4A 13:29
PROVIDERS: ADMIT Internal Medicine; ATTEND Internal Medicine
DX: I26.99 Other pulmonary embolism without acute cor pulmonale (principal); J90 Pleural effusion, not elsewhere classified; E46 Unspecified protein-calorie malnutrition; I10 Essential (primary) hypertension; F17.210 Nicotine dependence, cigarettes, uncomplicated; E66.9 Obesity, unspecified; Z68.33 Body mass index [BMI] 33.0-33.9, adult
CPT/HCPCS: 36415; 71046; 71275; 80053; 83036; 84484; 85007; 85025; 85379; 93005; 93010; 93306; 93970; G0378; J1650; Q9967